=== PATIENT | female | born 1985 | race Caucasian/White ===

== ENCOUNTER 2018-10-15 11:48 | Emergency (ER) | payer OTHER, SELFPAY ==
[~2018-10-15] VITALS: Ht 167.6 cm; Wt 130.0 kg
[2018-10-15] MEDS ORDERED: ACET-683 PO (11:53)
[2018-10-15] MEDS ORDERED: NS 1,000 ML IV ONE (12:30)
[2018-10-15] MEDS ORDERED: METOCLOPRAMIDE INJ 10MG/2ML VIAL (J2765) IV ONE (12:45)
[2018-10-15 12:56] LABS: BASO % 0.4 % (0.0-1.0); HEMATOCRIT 42.4 % (36.0-47.0); HEMOGLOBIN 14.4 g/dl (12.0-15.5); LYMPH # 0.7 10^3/uL (1.5-5.0); LYMPH % 13.4 % (24.0-44.0); MEAN CORPUSCULAR HEMOGLOBIN 33.5 pg (27.0-33.0); MEAN CORPUSCULAR VOLUME 98.6 fl (80.0-96.0); MONO # 0.3 10^3/uL (0.0-0.8); MONO % 5.4 % (0.0-5.0); NEUTROPHILS # 4.3 10^3/uL (1.5-8.5); NEUTROPHILS % 80.6 % (36.0-66.0); PLATELET COUNT, AUTOMATED 149 10^3/uL (150-450); WHITE BLOOD COUNT 5.4 10^3/uL (4.0-10.0)
[2018-10-15 12:58] LABS: AMORPHOUS SEDIMENT SMALL (NEGATIVE); APPEARANCE, URINE HAZY (CLEAR); BACTERIA, URINE AUTO 1+ (NEGATIVE); BILIRUBIN, URINE AUTO NEGATIVE (NEGATIVE); BLOOD, URINE BLOOD 1+ (NEGATIVE); COLOR, URINE AMBER (YELLOW); GLUCOSE, URINE (UA) AUTO NEGATIVE (NEGATIVE); KETONE, URINE AUTO 1+ mg/dL (NEGATIVE); LEUKOCYTE ESTERASE, URINE AUTO 1+ (NEGATIVE); MUCUS, URINE SMALL (NEGATIVE); NITRITE, URINE AUTO NEGATIVE (NEGATIVE); PROTEIN, URINE AUTO 2+ mg/dL (NEGATIVE); RBC, URINE AUTO 22 /HPF (0-3); SPECIFIC GRAVITY URINE AUTO 1.029 (1.002-1.035); SQUAMOUS EPITHELIAL CELL UR AU 4 /HPF (0-6); WBC, URINE AUTO 21 /HPF (0-3)
[2018-10-15] MEDS ORDERED: KETOROLAC 30 MG/ML VIAL (J1885) IV ONE (13:00)
[2018-10-15 13:24] LABS: HCG, SERUM QUALITATIVE NEGATIVE (NEGATIVE)
[2018-10-15 13:27] LABS: ALBUMIN 3.7 GM/DL (3.2-5.2); ALT/SGPT 19 U/L (12-78); AMYLASE 16 U/L (25-115); BILIRUBIN,DIRECT < 0.1 MG/DL (0.0-0.2); BILIRUBIN,TOTAL 0.4 MG/DL (0.2-1.0); BLOOD UREA NITROGEN 9 MG/DL (7-18); CARBON DIOXIDE LEVEL 24 MEQ/L (21-32); CHLORIDE LEVEL 106 MEQ/L (98-107); CREATININE FOR GFR 0.75 MG/DL (0.55-1.30); GLOMERULAR FILTRATION RATE > 60.0 (>60); GLUCOSE, FASTING 103 MG/DL (70-100); LIPASE 34 U/L (73-393); POTASSIUM SERUM 3.5 MEQ/L (3.5-5.1); SODIUM LEVEL 136 MEQ/L (136-145)
[2018-10-15] MEDS ORDERED: ACETAMINOPHEN 500 MG TAB PO ONE (13:45)
[2018-10-15] MEDS ORDERED: ISOVUE-370 76% 100ML VIAL (Q9967) As Ordered ONE (14:06)
--- NOTE | 2018-10-15 14:56 | REP ---
Clinical: Chest pain and elevated D-dimer level . Technique: Axial contrast enhanced images from the thoracic inlet to the upper abdomen using 100 ml Isovue 370 intravenous contrast material with multiplanar re-formations. Findings: Satisfactory enhancement of the pulmonary vasculature is achieved and no filling defects are identified to suggest pulmonary embolus. Moderate/large left lower lobe consolidation with surrounding alveolar infiltrates compatible with acute pneumonia and consistent with the patient's symptoms. No effusion. Remainder examination is normal. Reactive mediastinal / left hilar adenopathy noted. Impression: 1. No evidence for pulmonary embolus. 2. Left lower lobe consolidation compatible with acute pneumonia. Follow-up to resolution is recommended to exclude underlying pathology. Electronically Signed by Hammad Palencia MD 10/15/2018 02:46 P
--- NOTE | 2018-10-15 14:58 | REP ---
Clinical: Chest and abdominal pain. Technique: Axial noncontrast images from the lung bases to the pubic symphysis with coronal and sagittal re-formations. Findings: Left lower lobe consolidation compatible with pneumonia. Liver, spleen, pancreas, gallbladder, bilateral adrenal glands and kidneys are normal for noncontrast evaluation. The enteric system is without obstruction or obvious acute inflammatory process. Pelvis demonstrates partially collapsed normal bladder and age-appropriate uterus/adnexa with IUD in satisfactory position. Small amount of free fluid in the pelvis likely physiologic. No free air. No obvious adenopathy. Abdominal aorta without aneurysm. Musculoskeletal structures intact. Impression: Left lower lobe pneumonia. No obvious acute abdominopelvic pathology appreciated. Electronically Signed by Hammad Palencia MD 10/15/2018 02:48 P
[2018-10-15] MEDS ORDERED: LEVA750T7 PO (15:13)
[2018-10-15 15:30] VITALS: BP 106/76
--- NOTE | 2018-10-16 16:56 | ECGEPIP ---
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
== END 2018-10-15 15:39 | disposition home or self-care (01) ==
LOC: M ED 11:48
DX: N39.0 Urinary tract infection, site not specified (principal); J18.1 Lobar pneumonia, unspecified organism; Z87.891 Personal history of nicotine dependence
CPT/HCPCS: 71275; 74176; 80053; 81001; 82150; 82248; 83605; 83690; 84703; 85025; 85379; 93005; 93041; 96374; 96375; 99284; J1885; J2765; Q9967

== ENCOUNTER → 2022-11-02 | Outpatient (CLI) | payer OTHER ==
[~2022-11-02] MED LIST: ACET-683 PO; LEVA750T7 PO
[2022-11-02 15:43] LABS: BASO % 0.4 % (0.0-1.0); EOS % 0.3 % (0.0-3.0); HEMATOCRIT 39.2 % (36.0-47.0); HEMOGLOBIN 13.2 g/dl (12.0-15.5); LYMPH # 2.4 10^3/uL (1.5-5.0); LYMPH % 33.8 % (24.0-44.0); MEAN CORPUSCULAR HEMOGLOBIN 33.1 pg (27.0-33.0); MEAN CORPUSCULAR HGB CONC 33.7 g/dl (32.0-36.5); MEAN CORPUSCULAR VOLUME 98.2 fl (80.0-96.0); MONO # 0.4 10^3/uL (0.0-0.8); MONO % 5.3 % (2.0-8.0); NEUTROPHILS # 4.3 10^3/uL (1.5-8.5); NEUTROPHILS % 60.1 % (36.0-66.0); PLATELET COUNT, AUTOMATED 253 10^3/uL (150-450); RED BLOOD COUNT 3.99 10^6/uL (4.00-5.40); WHITE BLOOD COUNT 7.1 10^3/uL (4.0-10.0)
[2022-11-02 16:07] LABS: FOLLICLE STIMULATING HORMONE 6.7 mIU/ML; LUTEINIZING HORMONE 6.7 mIU/ML
[2022-11-02 16:08] LABS: THYROID STIMULATING HORMONE 2.168 uIU/ML (0.55-4.78)
[2022-11-02 16:09] LABS: FREE T4 1.21 NG/DL (0.89-1.76); PROGESTERONE 0.34 NG/ML
== END ==
LOC: M PLALAB 12:26
PROVIDERS: ATTEND Nurse Practitioner Family
DX: N92.1 Excessive and frequent menstruation with irregular cycle (principal); N95.9 Unspecified menopausal and perimenopausal disorder

== ENCOUNTER → 2022-12-20 | Outpatient (CLI) | payer OTHER | LOC: M WHC 07:40 | PROVIDERS: ATTEND Nurse Practitioner Family | DX: N83.202 Unspecified ovarian cyst, left side (principal) ==